=== PATIENT | male | born 1965 | race Caucasian/White ===

== ENCOUNTER → 2020-12-28 09:30 | Outpatient (CLI) | payer OTHER ==
[2013-04-01 21:35] VITALS: BMI 31.3
[~2020-12-28 09:30] MED LIST: COREG6.25 MG PO; LOPID600 MG; MACRODANTIN100 MG PO; NORCO 5/325 TAB1 TA1 PO; PRILOSEC20 MG PO
== END | disposition home or self-care (01) ==
LOC: D.MAMMO 09:30
PROVIDERS: ATTEND Family Medicine
DX: N63.20 Unspecified lump in the left breast, unspecified quadrant (principal)